=== PATIENT | male | born 1950 | race Caucasian/White ===

== ENCOUNTER 2021-01-24 07:46 | Emergency (ER) | payer MEDICARE, SELFPAY ==
[2021-01-24 07:49] VITALS: BP 190/110; PULSE 76; RESP 18; TEMP 36.8; O2SAT 96
[2021-01-24 08:03] VITALS: BP 190/105; PULSE 88; RESP 18; O2SAT 98
--- NOTE | 2021-01-24 08:21 | ED_ITS ---
HPI - Male Genitourinary General: Chief complaint: Urogenital-Male Stated complaint: PAINFUL URINATION Time Seen by Provider: 01/24/21 07:50 History of Present Illness: HPI Narrative: 70-year-old male presents emergency room complaining of suprapubic swelling. He denies dysuria urgency or frequency. He denies abdominal pain. No fever sweats or chills no hematuria. He denies any other symptoms. Onset (ago): week(s) Duration: constant Location: abdomen (suprapubic) Associated symptoms: Reports swelling; Deny discharge, dysuria, fevers/chills, hematuria, nausea, rash, urinary incontinence, urinary retention, mass or vomiting Review of Systems Const: Denies: fever(s), chills, body aches, change in appetite, fatigue or malaise ENMT: Denies: throat pain, ear or mastoid pain, nasal discharge or nasal congestion Card: Denies: chest pain, edema, dyspnea on exertion or orthopnea Resp: Denies: dyspnea, productive cough or non-productive cough GI: Denies: nausea or vomiting : Denies: dysuria, urinary incontinence or hematuria Skin/Breast: Denies: rash or pruritus Physical Exam Const: COMMON NORMALS: no acute distress GENERAL APPEARANCE: cooperative and comfortable ORIENTATION/CONSCIOUSNESS: Yes awake, Yes oriented to person, Yes oriented to place and Yes oriented to time HENMT: COMMON NORMALS: normocephalic, atraumatic and hearing grossly normal bilaterally HEAD & SCALP: normocephalic and atraumatic Neck/C-Spine: COMMON NORMALS: no JVD Resp: COMMON NORMALS: normal respiratory effort, No retractions, No use of accessory muscles and clear to auscultation bilaterally AUSCULTATION: clear to auscultation bilaterally Cardio: COMMON NORMALS: no JVD, regular rate, regular rhythm and No murmurs present (Cardio) RATE: regular rate RHYTHM: regular rhythm GI: COMMON NORMALS: Soft to palpation and No hepatosplenomegaly present INSPECTION: Yes other (Suprapubic fullness but there is no inguinal hernias or swelling.) AUSCULTATION: Yes normoactive bowel sounds PALPATION: Yes Soft to palpation, No Tenderness to palpation present (GI), No Guarding due to palpation present (GI) and Yes No hepatosplenomegaly present Extremity: COMMON NORMALS: normal to inspection, capillary refill normal, no clubbing, cyanosis or edema, no calf tenderness and no pedal edema Neuro: SENSORIUM/ORIENTATION: Yes oriented to person, Yes oriented to place and Yes oriented to time Skin: COMMON NORMALS: no rashes or lesions noted GENERAL SKIN EXAM: no rashes or lesions noted Course Vital Signs: Vital signs: Vital Signs Temperature 98.2 F 01/24/21 07:49 Pulse Rate 78 01/24/21 10:12 Respiratory Rate 18 01/24/21 10:12 Blood Pressure 178/111 01/24/21 10:12 Pulse Oximetry 98 01/24/21 10:12 MDM - Male MDM Narrative: Medical decision making narrative: No evidence of inguinal hernia. Labs are unremarkable urine is clean we will go and discharge patient home follow-up with primary care as needed. He does have elevated blood pressure and we started him on lisinopril and amlodipine recommend he follow-up with his primary care within the week to recheck blood pressure Lab Data: Labs: Lab Results 01/24/21 01/24/21 01/24/21 Range/Units 08:00 08:00 08:07 WBC 8.2 (4.0-10.0) 10^3/ uL RBC 5.37 H (4.1-5.3) 10^6/u L Hgb 17.3 H (11.7-16.6) g/dL Hct 51.9 (42.0-52.0) % MCV 96.6 H (80-94) fL MCH 32.2 (28.0-34.0) pg MCHC 33.3 (30.0-36.0) g/dL RDW 13.2 (12.1-15.1) % Plt Count 230 (130-400) 10^3/c mm MPV 9.9 (7.4-10.4) fL Neut % (Auto) 67.7 % Lymph % (Auto) 21.0 % Larue % (Auto) 8.8 % Eos % (Auto) 1.3 % Baso % (Auto) 0.6 % Neut # (Auto) 5.55 (1.8-7.7) 10^3/u L Lymph # (Auto) 1.7 (0.8-4.8) 10^3/u L Larue # (Auto) 0.7 (0.2-0.9) 10^3/u L Eos # (Auto) 0.1 (0.0-0.8) 10^3/u L Baso # (Auto) 0.1 (0.0-0.1) 10^3/u L Nucleated RBC % (a uto) 0 % Nucleated RBCs # 0.0 /100WBC Sodium 141 (136-145) mmol/L Potassium 4.5 (3.5-5.1) mmol/L Chloride 102 (98-107) mmol/L Carbon Dioxide 30 H (22-29) mmol/L Anion Gap 13.5 (5-19) BUN 15 (8-23) mg/dL Creatinine 1.2 (0.7-1.2) mg/dL GFR Calculation 59.9 L (90-130) mL/min Glucose 101 (65-115) mg/dL Calculated Osmolal ity 293 (285-295) mOsm/k g Calcium 8.5 (8.5-10.5) mg/dL Urine Color Yellow (Yellow) Urine Appearance Clear (CLEAR) Urine pH 7 (5-7) Ur Specific Gravit y 1.015 (1.005-1.030) Urine Protein Neg (Negative) Urine Glucose (UA) Norm (Normal) Urine Ketones Negative (Negative) Urine Blood Neg (Negative) Urine Nitrate Negative (Negative) Urine Bilirubin Neg (Negative) Urine Urobilinogen Norm (Negative) mg/dL Ur Leukocyte Krissy ase Negative (Negative) Discharge Plan Discharge Patient Disposition: Home Clinical Impression: Suprapubic fullness, Hypertension Condition: Stable Prescriptions: New lisinopril 20 mg tablet 10 mg PO DAILY Qty: 30 RF: 0 amlodipine 5 mg tablet 5 mg PO DAILY Qty: 30 RF: 0 Discharge Orders: Discharge ED (Routine); Ordered 01/24/21 Ordered By: Keith Harrington Patient Instructions: Opioid Safety Activity Restrictions/Additional Instructions: Follow-up with your primary care doctor in the next week for recheck of your blood pressure. Coding Level of Care Code ED Computer Engineering Technologist for Alec Fwd Exam Comprehensive
[2021-01-24 08:27] LABS: Basophils # 0.1 10^3/uL (0.0-0.1); Basophils % 0.6 %; Eosinophils # 0.1 10^3/uL (0.0-0.8); Eosinophils % 1.3 %; Hematocrit 51.9 % (42.0-52.0); Hemoglobin 17.3 g/dL (11.7-16.6); Lymphocytes # 1.7 10^3/uL (0.8-4.8); Mean Corpuscular HGB Conc 33.3 g/dL (30.0-36.0); Mean Corpuscular Hemoglobin 32.2 pg (28.0-34.0); Mean Corpuscular Volume 96.6 fL (80-94); Mean Platelet Volume 9.9 fL (7.4-10.4); Monocytes # 0.7 10^3/uL (0.2-0.9); Monocytes % 8.8 %; Neutrophils # 5.55 10^3/uL (1.8-7.7); Neutrophils % 67.7 %; Nucleated Red Blood Cells % 0 %; Platelet Count 230 10^3/cmm (130-400); Red Blood Count 5.37 10^6/uL (4.1-5.3); Red Cell Distribution Width 13.2 % (12.1-15.1); White Blood Count 8.2 10^3/uL (4.0-10.0)
[2021-01-24 08:32] LABS: Add Urine Microscopic? NO
[2021-01-24] MEDS: amlodipine 10 mg Tablet PO (08:34)
[2021-01-24] MEDS: hyDRALAzine 25 mg Tablet PO (08:35)
[2021-01-24 08:39] LABS: Urine Appearance Clear (CLEAR); Urine Color Yellow (Yellow); pH Urine 7 (5-7)
[2021-01-24 08:40] LABS: Bilirubin Urine Neg (Negative); Blood Urine Neg (Negative); Glucose Urine UA Norm (Normal); Ketones Urine Negative (Negative); Leukocyte Esterase Urine Negative (Negative); Nitrate Urine Negative (Negative); Protein Urine Neg (Negative); Specific Gravity, Urine 1.015 (1.005-1.030); Urobilinogen Urine Norm (Negative)
[2021-01-24 08:49] LABS: Anion Gap 13.5 (5-19); Blood Urea Nitrogen 15 mg/dL (8-23); Calcium 8.5 mg/dL (8.5-10.5); Carbon Dioxide 30 mmol/L (22-29); Chloride 102 mmol/L (98-107); Glomerular Filtration Rate 59.9 mL/min (90-130); Glucose 101 mg/dL (65-115); Osmolality Calculated 293 mOsm/kg (285-295); Potassium 4.5 mmol/L (3.5-5.1); Sodium 141 mmol/L (136-145)
[2021-01-24 09:03] VITALS: RESP 18
[2021-01-24 10:00] VITALS: BP 178/111; PULSE 78; RESP 18; O2SAT 98
[2021-01-24 10:12] VITALS: BP 178/111; PULSE 78; RESP 18; O2SAT 98
== END 2021-01-24 10:12 | disposition home or self-care (01) ==
PROVIDERS: Emergency Provider Family Medicine
DX: R10.2 Pelvic and perineal pain (principal); I10 Essential (primary) hypertension
CPT/HCPCS: 80048; 81003; 85025; 99283